=== PATIENT | female | born 1990 | race Hispanic/Latino ===

== ENCOUNTER 2018-04-15 16:28 | Emergency (ER) | payer OTHER ==
[~2018-04-15] VITALS: Ht 160 cm; Wt 76.2 kg
--- OUTSIDE RECORDS SUMMARY | 2018-04-15 16:31 | XMS REPORT | Encounter Summary ---
Author Organization Unknown Address [address] [place] [address] Phone [phone] Reason for Visit Medical Complaint Instructions 1. Epigastric pain patient follow up phone call 2. Influenza-like symptoms rapid flu (A+B) 3. Body mass index 25-29 - overweight learning about healthy weight Discussion Note Pt is in NAD; Verbalizes understanding of all instructions with no questions at this time. Plan of Care Patient Instructions Remain on an empty stomach. Based on the nature of your symptoms I recommend you report to the nearest ER for further evaluation and recommendations. Reminders Provider Appointments None recorded. Lab Rapid Flu (A+B) 04/15/2018 [facility] Referral None recorded. Procedures None recorded. Surgeries None recorded. Imaging None recorded. Medications Name Start Date TriNessa (28) 0.18 mg(7)/0.215 mg(7)/0.25 mg(7)-35 mcg tablet TK 1 T PO QD Medications Administered None recorded. Vitals Height Weight BMI Blood Pressure 5 ft 3 in 165 lbs 29.2 kg/m2 116/72 mm[Hg] Lab Results Date Name Specimen Result Interpretation Description Value Range Status Address Rapid Flu (A+B) Influenza a negative [facility]: [address] [place] [address] Influenza B negative [facility]: [address] [place] [address] Allergies Code Code System Name Reaction Severity Status Onset NKDA Problems Name Status Onset Date Source Body Mass Index 25-29 - Overweight Active 04/15/2018 Influenza-like Symptoms Active 04/15/2018 Epigastric Pain Active 04/15/2018 Procedures Date Name Performed by Tonsillectomy Information not available Vaccine List None recorded. Social History Smoking Status Never Smoker Past Encounters 04/15/2018 Epigastric Pain; Influenza-like Symptoms; Body Mass Index 25-29 - Overweight KALPANA Blair-C: [address] [place] [address], Ph. History of Present Illness Sffmyw-Wtpxixjy-Dahqyqip / Abdominal Pain Reported By: Patient HPI: Quality: worsening, watery, loose, increased quantity, frequent. Severity: severe, causing awakening from sleep. Duration: present for < 1 week. Onset/Timing: worse with meals, 4-10 times a day, starting within 30 minutes after eating; all day. Context: no one else with similar symptoms, no recent camping, no recent picnic, no recent travel, heartburn, history of GERD, last bowel movement:, no well water. Alleviating factors: Peptobismal, OTC medication, better with fasting, flatus. Aggravating factors: eating, fatty foods. Associated Symptoms: no abdominal pain, no fever/chills, no rash, no join t pain, no weight loss, no mucus in stool, no nutrient deficiency, no muscle aches, no bitter taste in the mouth, no difficulty swallowing (dysphagia), excess gas, nausea, vomiting, heartburn, black or tarry stools, weakness, cramping, bloating, feels like fullness/mass in throat, headache Review of Systems:ROS as noted in the HPI Review of Systems Basic Reported By: Patient Physical Exam Adult Basic, Adult Female Complete Reported By: Patient Constitutional: General Appearance: healthy-appearing, well-nourished, well-developed, overweight. Level of Distress: NAD. Ambulation: ambulating normally Psychiatric: Mental Status: active and alert. Orientation: to time, to place, to person Eyes: Lids and Conjunctivae: non-injected, no pallor Tdp-Hhkk-Galny-Throat: Lips, Teeth, and Gums: no mouth or lip ulcers, no bleeding gums, normal dentition. Oropharynx: moist mucous membranes, no erythema, no exudates, tonsils absent Neck: Neck: supple. Lymph Nodes: no cervical LAD Lungs: Respiratory effort: no dyspnea, no tachypnea, no use of accessory muscles, no intercostal retractions. Auscultation: breath sounds normal Cardiovascular: Heart Auscultation: RRR, no murmurs Abdomen: Bowel Sounds: diminished. Inspection and Palpation: soft, no masses, no CVA tenderness, distended, epigastric tenderness, RUQ tenderness, RLQ tenderness, guarding, rebound tenderness; Positive Kumar's sign. Liver: non- tender, no hepatomegaly. Spleen: non-tender, no splenomegaly. Hernia: none palpable
--- OUTSIDE RECORDS SUMMARY | 2018-04-15 16:31 | XMS REPORT | Encounter Summary ---
Author Organization Unknown Address [address] [place] [address] Phone [phone] Reason for Visit Medical Complaint Instructions 1. Influenza influenza (flu): care instructions rapid flu (A+B) Bromfed DM 2 mg-30 mg-10 mg/5 mL syrup 2. Pain in throat sore throat: care instructions rapid strep group A, throat Discussion Note: None recorded. Plan of Care Patient Instructions take bromfed as needed. it can cause drowsiness. do not drive will on this medication. follow up pcp otc tylenol and ibuprofen for fever and body aches. increase fluids. Reminders Provider Appointments None recorded. Lab Rapid Flu (A+B) 05/31/2017 [facility] Rapid Strep Group a, Throat 05/31/2017 [facility] Referral None recorded. Procedures None recorded. Surgeries None recorded. Imaging None recorded. Medications Name Start Date Bromfed DM 2 mg-30 mg-10 mg/5 mL syrup Take 10 mL every 4 hours by oral route as needed. TriNessa (28) 0.18 mg(7)/0.215 mg(7)/0.25 mg(7)-35 mcg tablet TK 1 T PO QD Medications Administered None recorded. Vitals Height Weight BMI Blood Pressure 5 ft 3 in 170 lbs 30.1 kg/m2 120/72 mm[Hg] Lab Results Date Name Specimen Result Interpretation Description Value Range Status Address Rapid Strep Group a, Throat Result negative [facility]: [address] [place] [address] Swab Location Left and Right tonsillar pillars [facility]: [address] [place] [address] Rapid Flu (A+B) Influenza a positive [facility]: [address] [place] [address] Influenza B negative [facility]: [address] [place] [address] Allergies Code Code System Name Reaction Severity Status Onset NKDA Problems None recorded. Procedures Date Name Performed by Tonsillectomy Information not available Vaccine List None recorded. Social History Smoking Status Never Smoker Past Encounters 05/31/2017 Influenza; Pain in Throat SERGO Moseley[facility] [address] [facility] [place] [place] [address], Ph. History of Present Illness Awmjb-Utguyvxukz-Yjaonrw Reported By: Patient HPI: Location: head/sinuses, throat, chest. Quality: productive cough, nasal/sinus congestion, dry cough. Duration: 3days. Severity: moderate. Onset/Timing: gradual. Context: non-smoker, foreign travel. Modifying factors: OTC medication. Associated Symptoms: no shortness of breath, no wheezing, no change in number of pillows needed to sleep at night, no sweats, no significant weight gain, no significant weight loss, no morning cough, no vomiting, no diarrhea, no rash, no fever, no muscle aches, no headache, yellow sputum, sore throat, nausea Review of Systems:ROS as noted in the HPI Review of Systems Basic Reported By: Patient Physical Exam Adult Basic, Adult Female Complete Reported By: Patient Constitutional: General Appearance: healthy-appearing, well-nourished, well-developed. Level of Distress: NAD. Ambulation: ambulating normally Psychiatric: Mental Status: active and alert Eyes: Lids and Conjunctivae: non-injected, no discharge Zsb-Ofdn-Drqtp-Throat: Ears: no lesions on external ear, no outer ear tenderness, EACs clear, TMs clear. Hearing: no hearing loss. Nose: no lesions on external nose, nasal discharge--rhinorrhea; congestion. Lips, Teeth, and Gums: no mouth or lip ulcers. Oropharynx: moist mucous membranes, no erythema, no exudates, tonsils not enlarged Neck: Neck: trachea midline. Lymph Nodes: no cervical LAD Lungs: Respiratory effort: no dyspnea, no tachypnea, no use of accessory muscles, no intercostal retractions. Auscultation: breath sounds normal Cardiovascular: Heart Auscultation: RRR, no murmurs
--- OUTSIDE RECORDS SUMMARY | 2018-04-15 16:31 | XMS REPORT | Encounter Summary ---
Author Organization Unknown Address [address] [place] [address] Phone [phone] Reason for Visit Left Medical Complaint Instructions 1. Acute blepharitis Keflex 500 mg capsule 2. Body mass index 30+ - obesity Discussion Note Pt is in NAD; Verbalizes understanding of all instructions with no questions at this time. Patient educational handouts: No information available. Plan of Care Patient Instructions Proper hand hygiene after contact with eyes, do not share pillows/clothing. Do not not wear any contacts and or makeup for the next 7 days. Use a different tissue to clean each eye. Take antibiotics as directed. You will become non-contagious after 48 hrs of proper antibiotic use.Alternate with Ibuprofen and acetaminophen every 4hrs as needed for pain/fever. Start warm compresses. Take medications as prescribed. Follow up with your PCP or pulvi mixer operator within 2-3 days if symptoms worsen as discussed. Report to ER in case of emergency, sharp eye pain or vision loss. Recommend follow a low sodium/fat/carb diet and exercise 30-45 mins/d 3-4 days a week once symptoms resolve. Reminders Provider Appointments None recorded. Lab None recorded. Referral None recorded. Procedures None recorded. Surgeries None recorded. Imaging None recorded. Medications Name Start Date Keflex 500 mg capsule Take 1 capsule every 12 hours by oral route as directed for 7 days. TriNessa (28) 0.18 mg(7)/0.215 mg(7)/0.25 mg(7)-35 mcg tablet TK 1 T PO QD Medications Administered None recorded. Vitals Height Weight BMI Blood Pressure 5 ft 3 in 170 lbs 30.1 kg/m2 118/70 mm[Hg] Lab Results None recorded. Allergies Code Code System Name Reaction Severity Status Onset NKDA Problems Name Status Onset Date Source Body Mass Index 30+ - Obesity Active 07/03/2017 Acute Blepharitis Active 07/03/2017 Procedures Date Name Performed by Tonsillectomy Information not available Vaccine List None recorded. Social History Smoking Status Never Smoker Past Encounters 07/03/2017 Acute Blepharitis; Body Mass Index 30+ - Obesity Ryanne Reina, ELECTRIC TRIPPER MACHINE OPERATOR-C: [address] [facility], [place] [address], Ph. History of Present Illness Eye Complaint Reported By: Patient HPI: Location: left. Quality: dull. Severity: mild, pain level 2/10. Duration constant. Onset/Timing: first episode, gradual onset, 1days. Context no previous history of Iritis, no previous history of recurrent corneal erosion, no one else with similar symptoms, wears contact lenses. Modifying factors nothing gives relief. Associated Symptoms: vision intact, no sensitivity to light, no foreign body sensation in eyes, no pain in the eyes, no pain with eye movement, no discharge from eyes, no headache, no fever/chills, no muscle aches; left upper eyelid edema and erythema Review of Systems:ROS as noted in the HPI Review of Systems Basic Reported By: Patient Physical Exam Adult Basic, Adult Female Complete Reported By: Patient Constitutional: General Appearance: obese. Level of Distress: NAD Eyes: Lids and Conjunctivae: non-injected, no discharge, no pallor; left upper eyelid slightly edematous, erythematous, warm to the touch and tender. No pus. Pupils: PERRLA. Corneas: grossly intact. EOM: EOMI. Lens: clear. Sclerae: non- icteric. Vision: acuity grossly intact Xey-Frnj-Qoqrg-Throat: Ears: no lesions on external ear, no outer ear tenderness, EACs clear, TMs clear. Nose: no lesions on external nose, nares patent, no septal deviation, nasal passages clear, no sinus tenderness, no nasal discharge. Lips, Teeth, and Gums: no mouth or lip ulcers, no bleeding gums, normal dentition. Oropharynx: moist mucous membranes, no erythema, no exudates, tonsils absent Neck: Lymph Nodes: no cervical LAD Lungs: Respiratory effort: no dyspnea, no tachypnea, no use of accessory muscles, no intercostal retractions. Auscultation: breath sounds normal Cardiovascular: Heart Auscultation: RRR, no murmurs Skin: Inspection and palpation: no rash
--- OUTSIDE RECORDS SUMMARY | 2018-04-15 16:31 | XMS REPORT | Continuity of Care Document ---
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 03/19/2018 [facility] Body Mass Index 30+ - Obesity 07/03/2017 Problem 07/03/2017 [facility] Acute Blepharitis 07/03/2017 Problem 07/03/2017 [facility] Acute blepharitis 07/03/2017 Diagnosis 07/03/2017 [facility] Body mass index 30+ - obesity 07/03/2017 Diagnosis 07/03/2017 [facility] Influenza 05/31/2017 Diagnosis 05/31/2017 [facility] Pain in throat 05/31/2017 Diagnosis 05/31/2017 [facility] Medications Medication Details Route Status Patient Instructions Ordering Provider Order Date Source Brompheniramine Maleate 0.4 MG/ML / Dextromethorphan Hydrobromide 2 MG/ML / Pseudoephedrine Hydrochloride 6 MG/ML Oral Solution [Bromfed DM] Bromfed DM 2 mg-30 mg-10 mg/5 mL syrup Take 10 mL every 4 hours by oral route as needed. Active [facility] TriNessa (28) 0.18 mg(7)/0.215 mg(7)/0.25 mg(7)-35 mcg tablet TriNessa (28) 0.18 mg(7)/0.215 mg(7)/0.25 mg(7)-35 mcg tablet TK 1 T PO QD Active [facility] Cephalexin 500 MG Oral Capsule [Keflex] Keflex 500 mg capsule Take 1 capsule every 12 hours by oral route as directed for 7 days. Active [facility] Allergies, Adverse Reactions, Alerts Substance Category Reaction Severity Reaction type Status Date Reported Comments Source Immunizations Immunization Date Given Site Status Last Updated Comments Source Results Order Name Results Value Reference Range Date Interpretation Comments Source Influenza A negative 04/15/2018 [facility] Influenza B negative 04/15/2018 [facility] Breast Complete [facility] US Breast Complete [facility] US COMPLETE ULTRASOUND OF BOTH BREASTS AND AXILLA: 03/31/2018 CLINICAL: Palpable area of concern right upper outer quadrant. COMPARISON:No prior exams were available for comparison. TECHNIQUE: Color flow and real-time ultrasound of both breasts four quadrants, retroareolar, and axilla regions were performed. Badillo scale images of the real- time examination were reviewed. FINDINGS: No abnormalities were seen sonographically in either breast or either axilla. IMPRESSION: NEGATIVE There is no sonographic evidence of malignancy. There is no sonographic abnormality seen in the right breast to correspond with the area of clinical concern in the upper outer quadrant which is consistent with normal fibroglandular tissue. The results were reviewed with the patient. The patient will follow up with their primary care physician. It was discussed with the patient that if clinical symptoms worsen, she should return immediately for additional evaluation by her physician and follow up with us for additional imaging. Recommend annual mammography to begin at age 40 in accordance with the [employer] of Breast Imaging guidelines, unless otherwise clinically indicated. This exam was interpreted at [id number] for [facility]. Shannan Caballero M.D. jt/:03/31/2018 16:11:31 Customer Experience Specialist(s): Anjali Hutchison [facility] letter sent: BI-RADS 1/2 Ultrasound BI-RADS: 1 Negative 03/31/2018 - - Read by: Shannan Caballero MD Dictated Date/time: 03/31/18 16:11 Electronically Signed by: Shannan Cablalero MD 03/31/18 16:11 FINAL REPORT [facility] RESULT negative 05/31/2017 [facility] SWAB LOCATION Left and Right tonsillar pillars 05/31/2017 [facility] Influenza A positive 05/31/2017 [facility] Influenza B negative 05/31/2017 [facility] Vital Signs Vital Sign Value Date Comments Source Diastolic (mm Hg) 72 04/15/2018 [facility] Height 63 04/15/2018 [facility] Systolic (mm Hg) 116 04/15/2018 [facility] Weight 165 04/15/2018 [facility] Diastolic (mm Hg) 70 07/03/2017 [facility] Height 63 07/03/2017 [facility] Systolic (mm Hg) 118 07/03/2017 [facility] Weight 170 07/03/2017 [facility] Diastolic (mm Hg) 72 05/31/2017 [facility] Height 63 05/31/2017 [facility] Systolic (mm Hg) 120 05/31/2017 [facility] Weight 170 05/31/2017 [facility] Encounters Location Location Details Encounter Type Encounter Number Reason For Visit Attending Provider ADM Date DC Date Status Source [place] - [facility] - [id number] Dennis Power, COWLMAN-C: [address] [place] [address], Ph. [id number] Dennis Power 05/31/2017 [facility] [place] - [facility] - [id number] Ryanne Reina, COWLMAN-C: [address] [place] [address], Ph. [id number] Ryanne Reina 07/03/2017 [facility] [place] - [facility] - [id number] Reina, COWLMAN-C: [address] [place] [address], Ph. [id number] Ryanne Reina 04/15/2018 [facility] Procedures Procedure Code Date Perfomer Comments Source Tonsillectomy [facility]
--- NOTE | 2018-04-15 20:50 | Diagnostic Imaging Report ---
EXAM: CT Abdomen and Pelvis WITH contrast INDICATION: Abdominal pain. COMPARISON: None. TECHNIQUE: Abdomen and pelvis were scanned utilizing a multidetector helical scanner from the lung base to the pubic symphysis after administration of IV contrast. Coronal and sagittal reformations were obtained. Routine protocol was performed. Scan was performed when during portal venous phase. IV CONTRAST: 100 cc Isovue-370 ORAL CONTRAST: Water. RADIATION DOSE: Total DLP: 762.52 mGy*cm Estimated effective dose: (DLP x 0.015 x size factor)Omnipaque 300 mSv COMPLICATIONS: None FINDINGS: LINES and TUBES: None. LOWER THORAX: Unremarkable HEPATOBILIARY: No focal hepatic lesions. No biliary ductal dilation. GALLBLADDER: No radio-opaque stones or sludge. No wall thickening. SPLEEN: No splenomegaly. PANCREAS: No focal masses or ductal dilatation. ADRENALS: No adrenal nodules KIDNEYS/URETERS: Kidneys enhance symmetrically. No hydronephrosis. No cystic or solid mass lesions. No stones. GI TRACT: No abnormal distention to suggest obstruction. There is mild nonspecific wall thickening of the colon which may be related to underdistention. Colitis is felt to be less likely. Appendix is normal. PELVIC ORGANS/BLADDER: 3.1 cm leiomyoma in the uterine fundus. Probable posterior fundal leiomyoma measuring 2.9 cm. LYMPH NODES: No lymphadenopathy. VESSELS: Unremarkable. PERITONEUM / RETROPERITONEUM: No free air or fluid. BONES: Unremarkable. SOFT TISSUES: Unremarkable. IMPRESSION: Questionable mild colitis. Otherwise no acute abnormality. Uterine leiomyomata. Signed by: Dr. Leny Pierson M.D. on 04/15/2018 8:47 PM
== END 2018-04-15 21:38 | disposition home or self-care (01) ==
LOC: FSED 16:28
DX: R10.11 Right upper quadrant pain (principal); R10.13 Epigastric pain; K52.9 Noninfective gastroenteritis and colitis, unspecified
CPT/HCPCS: 74177; 80048; 80076; 81003; 81025; 85025; 99284